=== PATIENT | male | born 1975 | race Caucasian/White ===

== ENCOUNTER 2022-03-03 11:53 | Outpatient (CLI) | payer OTHER, SELFPAY ==
[2022-03-03 13:58] LABS: Basophils Absolute Auto 0.03 K/uL (0.00-0.30); Basophils Percent Auto 0.5 % (0.0-3.0); Eosinophils Absolute Auto 0.16 K/uL (0.00-0.50); Eosinophils Percent Auto 2.8 % (0.0-7.0); Hematocrit 41.1 % (37.0-53.0); Hemoglobin* 14.1 gm/dL (13.5-17.5); Immature Granulocytes Abs Auto 0.01 K/uL (0.00-0.30); Immature Granulocytes Pct Auto 0.2 %; Lymphocytes Percent Auto 19.2 % (20-44); Mean Corpuscular HGB Conc 34 gm/dL (32-36); Mean Corpuscular Hemoglobin 28 pg (26-34); Mean Corpuscular Volume 82 fL (80-100); Monocytes Percent Auto 7.2 % (0.0-11.0); Neutrophils Absolute Auto 3.97 K/uL (1.7-7.0); Neutrophils Percent Auto 70.1 % (42.0-72.0); Platelet Count* 401 K/uL (140-440); RDW Coefficient of Variation % 11.9 % (11.5-15.5); Red Blood Count 4.99 m/uL (4.30-5.90); White Blood Count* 5.67 K/uL (4.50-11.00)
[2022-03-03 14:01] LABS: Chloride* 93 mmol/L (96-114); Slide Review Reflex No; Sodium* 127 mmol/L (135-149)
[2022-03-03 14:02] LABS: Potassium* 4.8 mmol/L (3.6-5.1)
[2022-03-03 14:04] LABS: Carbon Dioxide* 31 mmol/L (20-32); Creatinine* 0.7 mg/dL (0.5-1.5); Estimated Glomerular Filt Rate 117 ml/min
[2022-03-03 14:05] LABS: Blood Urea Nitrogen* 6 mg/dL (5-24); Calcium* 8.9 mg/dL (8.4-10.6); Glucose* 303 mg/dL (60-115)
[2022-03-03 14:40] LABS: SARS PCR* Negative SARS-CoV-2 (Negative)
== END 2022-03-03 11:54 | disposition home or self-care (01) ==
PROVIDERS: Visit Provider Family Medicine
DX: Z01.818 Encounter for other preprocedural examination (principal); Z01.812 Encounter for preprocedural laboratory examination; Z20.822 Contact with and (suspected) exposure to COVID-19
CPT/HCPCS: 80048; 85025; 87635

== ENCOUNTER 2022-03-04 06:15 | Day surgery (SDC) | payer OTHER, SELFPAY ==
[2022-03-04] VITALS (14 sets, daily range): BP systolic 112–135; BP diastolic 72–85; PULSE 72–92; RESP 16–20; TEMP 36.3–37.1; O2SAT 93–100; BMI 25.6
[2022-03-04] MEDS: LACTATED RINGERS 1000 ML 1,000 ML 100 ML IV ×2 (06:45→09:31)
[2022-03-04] MEDS: SODIUM CHLORIDE 0.9 % (FLUSH) 10 ML SYRINGE IVF (06:45)
[2022-03-04] MEDS: fentaNYL 100 MCG/2 ML inj IVP (07:15)
[2022-03-04] MEDS: MIDAZOLAM HCL 1 MG/ML inj IVP (07:15)
--- NOTE | 2022-03-04 07:28 | SUR.PREOP ---
TIME?OUT:?0714 PT/RN/MDA?VERIFICATION?OF?SURGICAL?SITE,?PROCEDURE,?AND?CONSENT OBTAINED?PRIOR?TO?INVASIVE?PROCEDURE.
--- NOTE | 2022-03-04 07:30 | CRLHL7_ITS ---
For Patients: As a result of the Cures Act, medical imaging exams and procedure reports are released immediately into your electronic medical record. You may view this report before your referring provider. If you have questions, please contact your health care provider. Indication: ORIF LEFT ELBOW Technique: Three fluoroscopic images of the left elbow. Fluoroscopic time 37.8 seconds. IMPRESSION: Fluoroscopic guidance for open reduction internal fixation of olecranon fracture. Dictated by Michel Akhtar MD @ 03/04/2022 10:03:43 AM (Electronically Signed)
[2022-03-04] MEDS: CEFAZOLIN 2 GM INJ IVP (07:40)
--- NOTE | 2022-03-04 09:23 | P.ORPRC_ITS ---
Procedure Note Date of procedure: 03/04/22 Procedure: PREOPERATIVE DIAGNOSIS: Displaced left upper extremity olecranon fracture POSTOPERATIVE DIAGNOSIS: Displaced left upper extremity olecranon fracture NAME OF OPERATION: Open reduction internal fixation SURGEON: Milan Whelan MD [employer] REPRESENTATIVE: GRETA Farley ANESTHESIA: Axillary block plus general endotracheal ESTIMATED BLOOD LOSS: 0 mL COMPLICATIONS: None SPECIMENS: None DRAINS: None PREOPERATIVE ANTIBIOTICS: Ancef 2 grams INDICATIONS: The patient is a 46-year-old who fell landing on their upper extremity sustaining the above injury. Given the amount of displacement, reduction and plate fixation were recommended. The risks, benefits and expected outcomes were discussed in detail. These included but were not limited to: Infection, bleeding, injury to blood vessel or nerve, venous thromboembolism. All questions were answered to their satisfaction. Use of an assistant professor of nursing was necessary throughout the case for patient positioning and safety, maintenance of the reduction, surgical site dressing and splint application. PROCEDURE: An axillary block was placed by Anesthesia. General anesthesia was administered. The patient was placed in the right lateral decubitus position, left upper extremity up. They were secured to the operating room table on the lizarraga bag. All bony prominences were well padded. The limb was exsanguinated with the Jairo bandage. The pneumatic tourniquet was inflated to 250 mm of mercury. A longitudinal incision was made over the posterior aspect of the elbow, curving it radially over the olecranon. Subcutaneous dissection was taken sharply to the triceps and the subcutaneous border of the olecranon and proximal ulna. Subperiosteal dissection at the fracture was made sharply. Fracture hematoma was evacuated with the curette, suction and irrigation. A unicortical drill hole was placed in the shaft fragment. The provisional reduction was obtained with reduction clamp. We placed a Synthes olecranon locking plate over the dorsal cortex. It was provisionally held with a cortical screw in the shaft fragment and 2 K-wires in the proximal fragment, while the assistant professor of nursing held the reduction. Its placement was confirmed with the image intensifier. We placed a locking screw in the shaft. We then placed 4 locking screws in the proximal fragment. Their placement was confirmed with the image intensifier, making sure they were not in the joint. Finally, we placed 2 locking screws in the shaft fragment. This construct was imaged in multiple views and was felt to be well placed with an anatomic reduction and well placed implants. The wound was irrigated normal saline. Subcutaneous tissues were reapproximated a 2-0 Vicryl, skin with a running 3-0 Monocryl in a subcuticular fashion. Glue was used to seal the skin. A dry dressing was applied. The tourniquet was rele ased. A [id number] posterior splint was applied. These steps were all completed by the assistant professor of nursing. Sponge and needle counts were correct x2. The patient tolerated the procedure well, there were no apparent complications. They were taken to the postanesthesia care unit in satisfactory condition. PLAN: The patient will be discharged home. They will follow up next week in the office for a wound check with three views of the elbow, out of the splint prior to being seen. At that time, we can begin occupational therapy for early active motion with an [id number] long-arm posterior splint.
--- NOTE | 2022-03-04 09:48 | P.NB_ITS ---
Nerve Block Nerve Block Time Seen by Provider: 07:24 Date Seen: 03/04/22 Type of block requested by surgeon for post-operative analgesia: axillary Side: left Time out performed: Yes Verification of patient name: Yes Verification of date of : Yes Site marking: site marked Name of person performing procedure: Dajuan Continuous monitoring Was continuous monitoring of O2 sat, B/P, gate operator, recorded every 15 minutes?: Yes Procedure Checklist: sterile prep, needles and gloves Ultrasound guided. Images saved: Yes Medications given in 5ml increments after negative aspiration: Ropivicaine %: 0.5 mL: 30 Needle gauge: 22 Patient tolerated procedure well: Yes Additional comments: Needle noted adjacent to nerve Block Charges Block Charge (with Pro Fee): Brachial Plexus Use of Ultrasound Machine for Block: Yes- US Guidance/pain block
--- NOTE | 2022-03-04 09:56 | W.ANESCHARGE ---
Anesthesia Charges Start Date/Time Anesthesia Start Date: 03/04/22 Anesthesia Start Time: 07:29 Stop Date/Time Anesthesia Stop Date: 03/04/22 Anesthesia Stop Time: 10:04 Summary Emergency: No
--- NOTE | 2022-03-04 10:05 | W.ANESCHARGE ---
Anesthesia Charges Start Date/Time Anesthesia Start Date: 03/04/22 Anesthesia Start Time: 07:29 Stop Date/Time Anesthesia Stop Date: 03/04/22 Anesthesia Stop Time: 10:04 Summary Emergency: No
--- NOTE | 2022-03-04 10:06 | SUR.OPER ---
PATIENT QUESTIONS ANSWERED SATISFACTORILY PREOPERATIVELY.? PATIENT BROUGHT TO OR #3 PER CART.? Patient positioned supine on OR #3 bed.?The perioperative?team supported arms bilaterally on arm boards.? Final approval of positioning by surgeon.?
== END 2022-03-04 11:30 | disposition home or self-care (01) ==
PROVIDERS: Visit Provider Orthopaedic Surgery
PROC: (CPT 24685; principal; 2022-03-04 07:30)
DX: S52.022A Displaced fracture of olecranon process without intraarticular extension of left ulna, initial encounter for closed fracture (principal)
CPT/HCPCS: 24685; 01740; 64415; 73070; 76942; 82962; A4580; C1713; J0330; J0690; J1100; J2250; J2405; J2704; J2795; J3010; J7120

== ENCOUNTER 2022-03-31 12:56 | Outpatient (RCR) | payer OTHER, SELFPAY | END 2022-09-23 23:59 | disposition home or self-care (01) | PROVIDERS: Visit Provider Physician Assistant Surgical | DX: Z98.890 Other specified postprocedural states (principal) | CPT/HCPCS: 97110; 97140; 97165; X5282 ==